=== PATIENT | female | born 1960 | race Caucasian/White ===

== ENCOUNTER 2023-03-09 13:42 | Emergency (ER) | payer OTHER ==
[~2023-03-09] VITALS: Ht 157.4 cm; Wt 83.0 kg
[~2023-03-09 13:42] MED LIST: MEDROL DOSEPAK4 MG PO; NKHM
[2023-03-09] MEDS ORDERED: HYDROCODONE-AC1 EAC1 PO (18:41)
[2023-03-13] MEDS ORDERED: METFORMIN XR500 MG PO (11:24)
[2023-03-13] MEDS ORDERED: ARIMIDEX1 MG PO (11:24)
[2023-03-13] MEDS ORDERED: NORVASC5 MG PO (11:24)
[2023-03-13] MEDS ORDERED: ROSUVASTATIN CAL5 MG PO (11:25)
[2023-03-13] MEDS ORDERED: VITAMIN B121000 MC1 PO (11:26)
== END 2023-03-09 18:58 | disposition home or self-care (01) ==
LOC: ED 13:42
DX: S52.501A Unspecified fracture of the lower end of right radius, initial encounter for closed fracture (principal); W18.39XA Other fall on same level, initial encounter; Y93.89 Activity, other specified; Y92.89 Other specified places as the place of occurrence of the external cause; Y99.8 Other external cause status

== ENCOUNTER → 2023-03-29 | Outpatient (CLI) | payer OTHER ==
[~2023-03-29] MED LIST changes: +ARIMIDEX1 MG PO; +HYDROCODONE-AC1 EAC1 PO; +METFORMIN XR500 MG PO; +NORVASC5 MG PO; +ROSUVASTATIN CAL5 MG PO; +VITAMIN B121000 MC1 PO
== END | disposition home or self-care (01) ==
LOC: ORTHO 00:55
PROVIDERS: ATTEND Orthopaedic Surgery
DX: S52.572D Other intraarticular fracture of lower end of left radius, subsequent encounter for closed fracture with routine healing (principal); X58.XXXD Exposure to other specified factors, subsequent encounter

== ENCOUNTER → 2023-04-26 | Outpatient (CLI) | payer OTHER | END | disposition home or self-care (01) | LOC: ORTHO 01:09 | PROVIDERS: ATTEND Orthopaedic Surgery | DX: S52.572D Other intraarticular fracture of lower end of left radius, subsequent encounter for closed fracture with routine healing (principal); Z98.890 Other specified postprocedural states; X58.XXXD Exposure to other specified factors, subsequent encounter ==